=== PATIENT | male | born 1985 | race African-American/Black ===

== ENCOUNTER 2018-06-11 15:56 | Emergency (ER) | payer SELFPAY ==
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
[2018-06-11] MEDS ORDERED: Albuterol/Ipratropium 3.0-0.5 MG/3 ML Neb Soln NEB ONE (16:28)
[2018-06-11] MEDS ORDERED: methylPREDNISolone Sodium Succinate 125 MG/2 ML SDV IVPUSH ONE (16:28)
[2018-06-11] MEDS ORDERED: methylPREDNISolone Sodium Succinate 125 MG/2 ML SDV IM ONE (16:29)
--- NOTE | 2018-06-14 10:23 | CR ---
EXAM DATE: 06/11/18 PATIENT'S AGE: 32 Patient: SHANTAL RODRÍGUEZ Facility: [place], [place] Site . Site : 1985 Study: XRay Chest [id number]/[id number] 4:40:52 PM Ordering Physician: Doctor Ojeda Final Report: Indication: Cough x5 days Technique: Chest 2 views Comparison: None Findings: Cardiovascular and mediastinum: Heart size and vasculature are normal in caliber and appearance. Lungs and pleural spaces: Lungs are clear. No sign of infiltrate or mass. No sign of pleural effusion. No pneumothorax. Bones and soft tissues: No significant findings. Impression: Normal chest. Lungs are clear. Dictated by Chance Vernon MD @ Jun 11 2018 5:12PM (Electronic Signature) Report Signed by Proxy. ANAT
== END 2018-06-11 17:50 | disposition home or self-care (01) ==
LOC: MW.ED 15:56
DX: J20.9 Acute bronchitis, unspecified (principal); F17.210 Nicotine dependence, cigarettes, uncomplicated; Z91.030 Bee allergy status
CPT/HCPCS: 71046; 93005; 96372; 99285; J2930; J7620-GY